=== PATIENT | male | born 1965 | race Caucasian/White ===

== ENCOUNTER 2016-06-29 16:48 | Emergency (ER) | payer OTHER ==
[~2016-06-29] VITALS: Ht 182.9 cm; Wt 112.3 kg
[2016-06-29 16:50] VITALS: BP 134/81; RESP 20; O2SAT 96
--- NOTE | 2016-06-29 16:56 | ED.REPORT ---
HPI-Sore Throat ONLY HPI/PE done Jun 29, 2016 ED Provider: History of Present Illness: 50-year-old male here for sore throat. Yesterday afternoon he was eating potato chips and felt like one cut the back of his throat. He does not think that it got stuck in the back of his throat though. He drinks some water and felt like he was okay. Later that day h began to get a sore throat. He also started to get a cough last night. Has some postnasal drip as well. He does not have fever. No nausea vomiting or headache. Does feel like he has some throat swelling though. Nursing Notes Stated Complaint: SORE THROAT Chief Complaint: ENT & Mouth Nursing Notes Reviewed: Yes Allergies: Coded Allergies: Penicillins (Verified Allergy, Intermediate, rash, 06/29/16) Miscellaneous Medications ([None]) General Time Seen by MD: 16:55 Chief Complaint Sore throat, Ingestion, foreign body Hx Obtained From: Patient Arrived By: Walk-in Onset Occurred: Yesterday Location: : Neck, left side: Neck, right side Severity: Current: Mild Severity: Maximum: Moderate Past Medical History Past Surgical History femur fracture at age 17 Smoking History Current Every Day Smoker Social History Alcohol Use: Denies alcohol use Drug Use: Denies drug use Occupation lives with roommates, Works at [employer], supposed to work tomorrow Review of Systems Basic Review of Systems Eyes: Vision NL, No discharge Cardiovascular: No chest pain, No dyspnea on exertion, No orthopnea, No parox noct dyspnea, No palpitations : No dysuria, No frequency Musculoskeletal: No extremity swelling, No extremity pain, Full range of motion , Joints NL Allergy / Immune: No allergy Psychiatric: Normal thought content Constitutional: Denies: Chills, Fatigue Ears / Nose / Throat: Reports: Nasal congestion, Throat pain, Throat swelling, Denies: Ear drainage bilateral Respiratory: Denies: Dyspnea on exertion GI: Denies: Abdominal pain, Nausea, Vomiting Complete sys rev & neg: except as marked. Physical Exam Initial Vital Signs Vital Signs (First) Date Time Temp Pulse Resp B/P Pulse Ox O2 Delivery O2 Flow Rate FiO2 06/29/16 16:50 37.0 82 20 134/81 96 Room Air Initial VS: Reviewed, Vital signs normal Head / Eyes: Atraumatic, Normocephalic, PERRL Respiratory: Breath sounds normal, Clear to auscultation, No respiratory distress Cardiovascular: Regular rate & rhythm, Heart sounds normal, Intact distal pulses Abdomen / GI: Soft, Non-tender, No guarding, No rebound, No distention Extremities: Vascular intact, Neuro intact, No swelling, No tenderness Skin: Warm, Dry, No cyanosis Neurologic: Alert, Oriented, Nonfocal Psychiatric: Mood/affect normal, Behavior normal, Normal thought content ENT: Airway patent, Mucous membranes moist, No peritonsillar abscess, No pooling of secretions, No trismus, Tympanic membs NL, Ext aud canal NL, Mastoid area NL, Nose exam NL, No sinus tenderness, No facial swelling, Gums/dentition NL Pharynx / Tonsils / Uvula: Positive: Pharyngeal erythema, Negative: Tonsillar exudate L, Tonsillar swelling L, Tonsillar swelling R 2+tonsilar lymphadenopathy. mild tenderness. no major tenderness of neck Re-Eval/Medical Decision Med Decision/Clinical Course NEg strep. Discussed with patient if his neck and throat pain he comes severe, severe pain with swallowing and feels like he has increased swelling or an abscess defect was instructed to return immediately otherwise treat like a cold with symptomatic care advised Discharge & Departure Shift Change Sign-Out Laboratory Evaluation: Lab evaluation discussed Response to Therapy: Unchanged Primary Impression: Pharyngitis Pharyngitis/tonsillitis etiology: unspecified etiology Qualified Code: J02.9 - Acute pharyngitis, unspecified Disposition: Home Discharge Condition All VS Reviewed: Yes Condition: Stable Patient Instructions: Pharyngitis (ED) Additional Instructions: Use ibuprofen or Tylenol and TheraFlu, salt water gargles for your sore throat. Treat your other symptoms as you sees fit. Return if throat pain becomes severe, i fIt feel like there is an abscess or swelling in the back of throat. you starts getting high fevers. Or any worsening condition. Otherwise follow up with your provider later this week as needed, Referrals: Elizabeth Oliva MD (PCP) EDSupervising Provider for APC: Carter De MD, Linnea K ARNP Jun 29, 2016 16:56
== END 2016-06-29 18:08 | disposition home or self-care (01) ==
LOC: SED 16:48
DX: J02.9 Acute pharyngitis, unspecified (principal); F17.200 Nicotine dependence, unspecified, uncomplicated; Z88.0 Allergy status to penicillin